=== PATIENT | female | born 1985 | race Caucasian/White ===

== ENCOUNTER 2018-08-30 16:29 | Emergency (ER) | payer SELFPAY ==
[2018-08-30 16:37] VITALS: BP 98/79
[2018-08-30] MEDS ORDERED: ACETAMINOPHEN 325 MG TABLET PO ONE (17:09)
--- NOTE | 2018-08-30 18:22 | RADIOLOGY REPORT (SQ) ---
EXAM DESCRIPTION: SHOULDER RIGHT 2 OR MORE VIEWS COMPLETED DATE/TIME: 08/30/2018 5:49 pm REASON FOR STUDY: right ribs shoulder pain after fall COMPARISON: None. NUMBER OF VIEWS: Three views. TECHNIQUE: Internal rotation, external rotation, and Y view images acquired of the right shoulder. LIMITATIONS: None. FINDINGS: MINERALIZATION: Normal. BONES: No acute fracture or dislocation. No worrisome bone lesions. JOINTS: No dislocation. VISUALIZED LUNGS AND RIBS: No pneumothorax. No rib fracture. SOFT TISSUES: No radiopaque foreign body. OTHER: No other significant finding. IMPRESSION: NEGATIVE STUDY OF THE RIGHT SHOULDER. NO RADIOGRAPHIC EVIDENCE OF ACUTE INJURY. TECHNICAL DOCUMENTATION: JOB ID: [id number] [employer]- All Rights Reserved Reading location - IP/workstation name: [email or web address]
--- NOTE | 2018-08-30 18:23 | RADIOLOGY REPORT (SQ) ---
EXAM DESCRIPTION: CERV SP 4 OR 5 VIEWS COMPLETED DATE/TIME: 08/30/2018 5:49 pm REASON FOR STUDY: fell landed on chair left chest shoulder and neck COMPARISON: None. NUMBER OF VIEWS: Five views. TECHNIQUE: AP, lateral, obliques and odontoid radiographic images acquired of the cervical spine. LIMITATIONS: None. FINDINGS: MINERALIZATION: Normal. ALIGNMENT: Anatomic. VERTEBRAE: Vertebral bodies of normal height. DISCS: No significant osteophytes or sclerosis. Disc height maintained. FORAMINA: No osteophytes or foraminal narrowing. LATERAL AND POSTERIOR ELEMENTS: Facets, lateral masses and spinous processes without significant find ings. HARDWARE: None in the spine. SOFT TISSUES: No masses or calcifications. Lung apices clear. OTHER: No other significant finding. IMPRESSION: NO SIGNIFICANT RADIOGRAPHIC FINDING IN THE CERVICAL SPINE. TECHNICAL DOCUMENTATION: JOB ID: [id number] [employer]- All Rights Reserved Reading location - IP/workstation name: [email or web address]
--- NOTE | 2018-08-30 18:23 | RADIOLOGY REPORT (SQ) ---
EXAM DESCRIPTION: RIBS RIGHT W/PA CHEST COMPLETED DATE/TIME: 08/30/2018 5:49 pm REASON FOR STUDY: right ribs shoulder pain after fall COMPARISON: None. TECHNIQUE: Frontal view of the chest and additional views of the right ribs acquired. NUMBER OF VIEWS: Three view. LIMITATIONS: None. FINDINGS: FRONTAL CXR: No pneumothorax. No pleural effusion. No atelectasis or infiltrates. RIBS: No displaced rib fractures. No lytic or blastic bony lesions. OTHER: No other significant finding. IMPRESSION: NO PNEUMOTHORAX. NO DISPLACED RIB FRACTURES. COMMENT: SITE OF TRAUMA/COMPLAINT MARKED/STAMP COMPLETED: YES. TECHNICAL DOCUMENTATION: JOB ID: [id number] [employer]- All Rights Reserved Reading location - IP/workstation name: [email or web address]
--- NOTE | 2018-08-30 19:00 | ER Document Report ---
ED Fall - General Chief Complaint: Fall Injury Stated Complaint: FALL/RIB PAIN Time Seen by Provider: 08/30/18 16:45 Mode of Arrival: Wheelchair Information source: Patient Notes: 33-year-old female presents to ED for complaint of falling landing on her chair earlier today. She states she has hemiplegic migraines and she had a migraine eat earlier causing her to fall and landed on the back of her chair. She states it caused her to have pain in her neck shoulder and ribs. She states she heard and felt a grinding noise in her neck and shoulder. Patient is alert and oriented respirations regular and unlabored speaking in full sentences walks with a even steady gait. TRAVEL OUTSIDE OF THE [place] IN LAST 30 DAYS: No - HPI Occurred: This afternoon Where: Public place Context: Fell from standing - At the back of a chair Associated symptoms: None Location of injury/pain: Chest - Right ribs, Neck, Shoulder - Right shoulder Quality of pain: Achy, Sharp Severity: Moderate Pain Level: 3 - Related data Allergies/Adverse Reactions: diphenhydramine [From Benadryl] Allergy (Verified 08/30/18 16:33) doxycycline Allergy (Verified 08/30/18 16:33) morphine Allergy (Verified 08/30/18 16:33) Past Medical History - General Information source: Patient - Social History Smoking Status: Never Smoker Cigarette use (# per day): No Chew tobacco use (# tins/day): No Smoking Education Provided: No Frequency of alcohol use: None Drug Abuse: Marijuana Lives with: Spouse/Significant other - "Life partner " Family History: Reviewed & Not Pertinent Patient has suicidal ideation: No Patient has homicidal ideation: No - Past Medical History Cardiac Medical History: Reports: None Pulmonary Medical History: Reports: None EENT Medical History: Reports: None Neurological Medical History: Reports: Hx Migraine - hemiplegia Endocrine Medical History: Reports: None Renal/ Medical History: Reports: None Malignancy Medical History: Reports: None GI Medical History: Reports: None Musculoskeletal Medical History: Reports Hx Musculoskeletal Trauma Skin Medical History: Reports None Psychiatric Medical History: Reports: None Traumatic Medical History: Reports: Hx Fractures Infectious Medical History: Reports: None Past Surgical History: Reports: Hx Breast Surgery - tumor removed, Hx Cholecystectomy, Hx Orthopedic Surgery - R femur - Immunizations Immunizations up to date: Yes Hx Diphtheria, Pertussis, Tetanus Vaccination: Yes Review of Systems - Review of Systems Notes: REVIEW OF SYSTEMS: CONSTITUTIONAL : Denies fever, chills, or sweats. Denies recent illness. EENT: Denies eye, ear, throat, or mouth pain or symptoms. Denies nasal or sinus congestion or discharge. Denies throat, tongue, or mouth swelling or difficulty swallowing. CARDIOVASCULAR: Denies chest pain. Denies palpitations or racing or irregular heart beat. Denies ankle edema. RESPIRATORY: Pain and tenderness to the right ribs GASTROINTESTINAL: Denies abdominal pain or distention. Denies nausea, vomiting , or diarrhea. Denies blood in vomitus, stools, or per rectum. Denies black, tarry stools. Denies constipation. GENITOURINARY: Denies difficulty urinating, painful urination, burning, frequency, blood in urine, or discharge. FEMALE GENITOURINARY: Denies vaginal bleeding, heavy or abnormal periods, irregular periods. Denies vaginal discharge or odor. MUSCULOSKELETAL: Pain to the right ribs, neck, and right shoulder SKIN: Denies rash, lesions or sores. HEMATOLOGIC : Denies easy bruising or bleeding. LYMPHATIC: Denies swollen, enlarged glands. NEUROLOGICAL: Denies confusion or altered mental status. Denies passing out or loss of consciousness. Denies dizziness or lightheadedness. Denies headache. Denies weakness or paralysis or loss of use of either side. Denies problems with gait or speech. Denies sensory loss, numbness, or tingling. Denies seizures. PHYSICAL EXAMINATION: GENERAL: Well-appearing, well-nourished and in no acute distress. HEAD: Atraumatic, normocephalic. EYES: Pupils equal round and reactive to light, extraocular movements intact, conjunctiva are normal. ENT: Nares patent, oropharynx clear without exudates. Moist mucous membranes. NECK: Normal range of motion, supple without lymphadenopathy LUNGS: Breath sounds clear to auscultation bilaterally and equal. No wheezes rales or rhonchi. HEART: Regular rate and rhythm without murmurs ABDOMEN: Soft, nontender, nondistended abdomen. No guarding, no rebound. No masses appreciated. Female : deferred Musculoskeletal: Pain in right ribs neck and shoulder tenderness to all 3 areas no bruising swelling noted NEUROLOGICAL: Cranial nerves grossly intact. Normal speech, normal gait. Normal sensory, motor exams PSYCH: Normal mood, normal affect. SKIN: Warm, Dry, normal turgor, no rashes or lesions noted. PSYCHIATRIC: Denies anxiety or stress. Denies depression, suicidal ideation, or homicidal ideation. ALL OTHER SYSTEMS REVIEWED AND NEGATIVE. Dictation was performed using [employer] voice recognition software Physical Exam - Vital signs Vitals: Temp Pulse Resp BP Pulse Ox 98.0 F 86 16 98/79 L 96 08/30/18 16:35 08/30/18 16:35 08/30/18 16:35 08/30/18 16:35 08/30/18 16:35 Course - Re-evaluation Re-evalutation: 08/30/18 21:09 X-rays discussed with patient a CD of the x-rays was given to the patient to follow-up with her primary doctor. Patient was treated with Tylenol in the ED as she had already taken 1000 mg of ibuprofen before coming to the emergency room. Patient was given a list of local primary doctors to follow-up with. She states she has a neurologist she is to follow-up with. - Vital Signs Vital signs: Temp Pulse Resp BP Pulse Ox 98.0 F 86 16 98/79 L 96 08/30/18 16:35 08/30/18 16:35 08/30/18 16:35 08/30/18 16:35 08/30/18 16:35 - Diagnostic Test Radiology reviewed: Image reviewed, Reports reviewed Discharge - Discharge Clinical Impression: Fall Qualifiers: Encounter type: initial encounter Qualified Code(s): W19.XXXA - Unspecified fall, initial encounter Contusion of rib on right side Qualifiers: Encounter type: initial encounter Qualified Code(s): S20.211A - Contusion of right front wall of thorax, initial encounter Contusion of right shoulder Qualifiers: Encounter type: initial encounter Qualified Code(s): S40.011A - Contusion of right shoulder, initial encounter Cervical strain Qualifiers: Encounter type: initial encounter Qualified Code(s): S16.1XXA - Strain of muscle, fascia and tendon at neck level, initial encounter Condition: Stable Disposition: HOME, SELF-CARE Instructions: Family Physicians / Practices Additional Instructions: Rib Contusion You have been diagnosed as having bruised ribs. It will usually take a few weeks for these injured ribs to heal. You should cough or take a deep breath at least every hour or two to prevent lung complications. You should not engage in any strenuous physical activity until released by your physician. The usual rule is "if it hurts, don' t do it." Return if you develop any of the following: (1) Fever or chills. (2) Persistent cough, coughing up blood, or shortness of breath. (3) Increasing pain. (4) Weakness, lightheadedness, or fainting. Shoulder Injury You have injured your shoulder. This usually results from stretching or tearing of the tendons during trauma. Time and protection are required in order to heal properly. Many injuries are quite disabling, and should be taken seriously. Initial treatment includes cold packs and a sling to rest the shoulder. The physician has assessed the seriousness of your injury, and has outlined a treatment plan. Understand that this treatment may change, depending on how you progress. If a re-examination was recommended, it is important that you follow up as instructed. Some shoulder injuries (such as partial tear of the rotator cuff) are only suspected after you've failed to improve. Call us if there's severe pain, numbness, or loss of function. NECK INJURY (CERVICAL STRAIN): You have a neck strain. This is an injury to the muscles and ligaments in the neck. There is no evidence of a fracture of the neck bones. Also, no injury to the spinal cord or nerve roots was detected. Usually, stiffness and pain INCREASE for the first 24-48 hours after the injury. The pain will gradually resolve and the neck will become more mobile. Most patients are back at work or school within a few days. Typically, complete healing takes about two or three weeks. The usual initial treatment is rest and cold packs. A neck collar may be placed to keep the muscles of the neck at rest. Antiinflammatory and muscle relaxing medication are often used to reduce the spasm and irritation. You should call the doctor, or go to the hospital, if you develop numbness or weakness in any extremity, problems with your bladder or bowel, or pain radiating down the arms. USE OF TYLENOL (ACETAMINOPHEN): Acetaminophen may be taken for pain relief or fever control. It's much safer than aspirin, offering a wider range of "safe" dosages. It is safe during . Some brand names are Tylenol, Panadol, Datril, Anacin 3, Tempra, and Liquiprin. Acetaminophen can be repeated every four hours. The following are maximum recommended dosages: WEIGHT Dose Drops Elixir Chewable( 80mg) (LBS.) drprs=droppers tsp=teaspoon 6 40 mg 0.4 ml (1/2) 6-11 80 mg 0.8 ml (full) tsp 1 tab 12-16 120 mg 1 1/2 drprs 3/4 tsp 1 1/2 tabs 17-23 160 mg 2 drprs 1 tsp 2 tabs 24-30 240 mg 3 drprs 1 1/2 tsp 3 tabs 30-35 320 mg 2 tsp 4 tabs 36-41 360 mg 2 1/4 tsp 4 1/2 tabs 42-47 400 mg 2 1/2 tsp 5 tabs 48-53 480 mg 3 tsp 6 tabs 54-59 520 mg 3 1/4 tsp 6 1/2 tabs 60-64 560 mg 3 1/2 tsp 7 tabs 65-70 600 mg 3 3/4 tsp 7 1/2 tabs 71-76 640 mg 4 tsp 8 tabs 77-82 720 mg 4 1/2 tsp 9 tabs 83-88 800 mg 5 tsp 10 tabs >89 pounds or adults 650 mg to 900 mg Acetaminophen can be repeated every four hours. Maximum dose not to exceed 4000 mg a day. These maximum recommended dosages are slightly higher than the dosages written on the product container, but these dosages are very safe and below the toxic dosage for acetaminophen. ICE PACKS: Apply ice packs frequently against the painful area. Many different schedules are recommended, such as "20 minutes on, 20 minutes off" or "one hour ice, two hours rest." If you need to work, you may need to go longer between ice treatments. You should plan to have the area ice packed AT LEAST one fourth of the time. The ice should be applied over the wrap, tape, or splint, or over a layer of cloth -- not directly against the skin. Some ice bags have a built-in cloth and can be put directly on the skin. WARM PACKS: After approximately two days, apply gentle heat (such as a heating pad or hot water bottle) for about 20 to 30 minutes about every two hours -- at least four times daily. Warmth and elevation will help you make a more rapid recovery , and will ease the pain considerably. Do not use HOT heat, and never apply heat for longer than 30 minutes. The continuous heat can invisibly damage skin and muscles -- even when no burn is seen on the surface. Damaged muscles can make you MORE sore. FOLLOW-UP CARE: If you have been referred to a physician for follow-up care, call the physician s office for an appointment as you were instructed or within the next two days. If you experience worsening or a significant change in your symptoms, notify the physician immediately or return to the Emergency Department at any time for re-evaluation. Forms: Smoking Cessation Education Referrals: [facility] [Provider Group] - Follow up as needed [facility] [Provider Group] - Follow up as needed
== END 2018-08-30 19:44 | disposition home or self-care (01) ==
LOC: ER 16:29
DX: S16.1XXA Strain of muscle, fascia and tendon at neck level, initial encounter (principal); S20.211A Contusion of right front wall of thorax, initial encounter; S40.011A Contusion of right shoulder, initial encounter; R07.81 Pleurodynia; M54.2 Cervicalgia; M25.511 Pain in right shoulder; W19.XXXA Unspecified fall, initial encounter; W22.03XA Walked into furniture, initial encounter; Z88.8 Allergy status to other drugs, medicaments and biological substances; Z88.1 Allergy status to other antibiotic agents; Z88.5 Allergy status to narcotic agent
CPT/HCPCS: 72050; 99283

== ENCOUNTER 2019-01-14 15:03 | Emergency (ER) | payer SELFPAY ==
[2019-01-14] MEDS ORDERED: LORAZEPAM INJ 2 MG/1 ML VIAL IV ONE (16:18)
--- NOTE | 2019-01-14 16:18 | ER Document Report ---
Addendum entered and electronically signed by PAUL RODRIGUEZ PA-C 01/14/19 22:41: Course - Re-evaluation Re-evalutation: 01/14/19 22:40 I look patient up on the [employer] aware line and she does not show any signs of doctor shopping or narcotic seeking behavior. - Vital Signs Vital signs: Temp Pulse Resp BP Pulse Ox 98.1 F 78 20 131/79 H 98 01/14/19 21:13 01/14/19 21:13 01/14/19 21:13 01/14/19 21:13 01/14/19 21:13 - Laboratory Result Diagrams: 01/14/19 16:45 01/14/19 16:45 Laboratory results interpreted by me: 01/14/19 01/14/19 15:55 16:45 Chloride 108 H Urine Ascorbic Acid 40 H Original Note: ED General Pain - General Chief Complaint: Back Pain Stated Complaint: BACK PAIN Time Seen by Provider: 01/14/19 16:12 Mode of Arrival: Ambulatory Information source: Patient, Relative Notes: Patient is a 33-year-old female comes to the emergency room with her complaining of having a history of multiple medical problems. She has states she has a history of DJD, she has a history of hemiplegic migraines, she has a history of hypertension, polycystic ovarian syndrome, history of sciatica with radiation down the legs, history of right hip pain and dislocation, history of chronic back problems,. Patient's last period was in March states is secondary to polycystic ovarian syndrome. Patient denies smoking alcohol or narcotics. She does admit to smoking marijuana for her pain relief. Patient states that the back pain that she is experienced is triggered her hemiplegic migraines and she is afraid she is going to have an event. Patient then mentions that in the past week she has had uncontrolled loss of her urine and 2 times uncontrolled loss of her stool. TRAVEL OUTSIDE OF THE [place] IN LAST 30 DAYS: No - HPI Onset: Last week Onset/Duration: Gradual, Persistent, Worse Severity: Moderate Pain Level: 3 Context: Chronic problem - ED nurse practitioner to me Typical of prior episodes of painful crisis: Yes Associated symptoms: Muscle aches Exacerbated by: Sitting, Standing, Movement, Walking, Coughing, Deep breathing Relieved by: Denies Similar symptoms previously: Yes Recently seen / treated by doctor: Yes - Related Data Allergies/Adverse Reactions: diphenhydramine [From Benadryl] Allergy (Verified 01/14/19 15:10) doxycycline Allergy (Verified 01/14/19 15:10) morphine Allergy (Verified 01/14/19 15:10) екатерина Allergy (Uncoded 01/14/19 17:39) raspberries Allergy (Uncoded 01/14/19 17:39) Past Medical History - General Information source: Patient - Social History Smoking Status: Never Smoker Cigarette use (# per day): No Chew tobacco use (# tins/day): No Smoking Education Provided: No Drug Abuse: None Lives with: Family Family History: Reviewed & Not Pertinent Neurological Medical History: Reports: Hx Migraine - hemiplegia Renal/ Medical History: Denies: Hx Peritoneal Dialysis Musculoskeletal Medical History: Reports Hx Musculoskeletal Trauma Traumatic Medical History: Reports: Hx Fractures Past Surgical History: Reports: Hx Breast Surgery - tumor removed, Hx Cholecystectomy, Hx Orthopedic Surgery - R femur - Immunizations Immunizations up to date: Yes Hx Diphtheria, Pertussis, Tetanus Vaccination: Yes Review of Systems - Review of Systems Constitutional: No symptoms reported EENT: No symptoms reported Cardiovascular: No symptoms reported Respiratory: No symptoms reported Gastrointestinal: No symptoms reported Genitourinary: Dysuria, Hematuria, Other - Loss of urine Female Genitourinary: No symptoms reported Musculoskeletal: No symptoms reported, Joint pain, Muscle pain, Muscle stiffness Skin: No symptoms reported Hematologic/Lymphatic: No symptoms reported Neurological/Psychological: Sensory change, Weakness, Gait changes, Headaches -: Yes All other systems reviewed and negative Physical Exam - Vital signs Vitals: Temp Pulse Resp BP Pulse Ox 98.5 F 74 15 131/90 H 98 01/14/19 15:15 01/14/19 15:15 01/14/19 15:15 01/14/19 15:15 01/14/19 15:15 Interpretation: Hypertensive - Notes Notes: PHYSICAL EXAMINATION: GENERAL: Patient is a well-nourished well-developed morbidly obese 33-year-old female who is in no apparent distress on physical exam however she is very expressive, histrionic and stands out as the liter in the family. Patient is stated very histrionic giving details about her hemiplegic migraines and how bad they can be and how she loses herself in them but she does not actually pass out. She is daily accounts of how this happens to her and she remembers everything going on around her. Patient does smell of urine on physical examination. HEAD: Atraumatic, normocephalic. EYES: Pupils equal round and reactive to light, extraocular movements intact, conjunctiva are normal. ENT: Nares patent, oropharynx clear without exudates. Moist mucous membranes. NECK: Normal range of motion, supple without lymphadenopathy LUNGS: Breath sounds clear to auscultation bilaterally and equal. No wheezes rales or rhonchi. HEART: Regular rate and rhythm without murmurs ABDOMEN: Soft, nontender, nondistended abdomen. No guarding, no rebound. No masses appreciated. Female : deferred Musculoskeletal: Examination patient's low back shows moderate amount of tenderness to palpation along the lumbar spine area around L3-L4. Patient very sensitive to touch at this point. She has some moderate amount of tenderness running down to the back of sciatic notch on the right buttocks. And she has some tenderness and sensitivity going down to the back of the leg. Patient has good DTRs in the lower extremities bilaterally. She has good strength against resistance with knee lifts and with flexion and extensions of the legs outward and inward. As well as good strength with squeezing of the knees. Patient has good sphincter tone. NEUROLOGICAL: Normal speech, normal gait. Normal sensory, motor exams PSYCH: Normal mood, normal affect. SKIN: Warm, Dry, normal turgor, no rashes or lesions noted. Course - Re-evaluation Re-evalutation: 01/14/19 22:33 Patient's MRI was negative for any cauda equina syndrome. She was also shows multiple areas of bulging disc as well as an area of an impingement at L5 for L5 I believe. We are going to treat this with steroid taper and some muscle relaxers. Patient will follow up with her primary care outpatient since there is no acute findings on any of the MRIs. - Vital Signs Vital signs: Temp Pulse Resp BP Pulse Ox 98.1 F 78 20 131/79 H 98 01/14/19 21:13 01/14/19 21:13 01/14/19 21:13 01/14/19 21:13 01/14/19 21:13 - Laboratory Result Diagrams: 01/14/19 16:45 01/14/19 16:45 Laboratory results interpreted by me: 01/14/19 01/14/19 15:55 16:45 Chloride 108 H Urine Ascorbic Acid 40 H Discharge - Discharge Clinical Impression: Sciatica of right side associated with disorder of lumbar spine Condition: Good Disposition: HOME, SELF-CARE Instructions: Ice Packs ([facility]), Low Back Pain ([facility]), Muscle Strain ([facility]), Oral Narcotic Medication ([facility]), Sciatica ([facility]) Additional Instructions: Home and rest. Medication as prescribed. As we discussed he will need to follow-up with orthopedic doctor or a neurosurgeon for further intervention. Highly recommend he contact your primary care for this. Should you have any concerns or problems she can return to ER for recheck. Given the name of the orthopedic surgeon remote ruby on rails developer since we do not have a neurologist remote ruby on rails developer here. And he may contact his office if he can accommodate you. Prescriptions: Cyclobenzaprine HCl [Flexeril 10 mg Tablet] 10 mg PO TID #21 tablet Hydrocodone/Acetaminophen [Mesa 5-325 mg Tablet] 1 tab PO Q6 PRN #8 tablet PRN Reason: Prednisone 10 mg PO ASDIR 6 Days #1 tab.ds.pk Forms: Elevated Blood Pressure Referrals: CONSTANTINE ARMANDO MD [ACTIVE STAFF] - Follow up as needed
[2019-01-14 16:41] LABS: APPEARANCE,URINE CLEAR; BILIRUBIN,URINE NEGATIVE (NEGATIVE); COLOR,URINE YELLOW; GLUCOSE, URINE NEGATIVE (NEGATIVE); KETONES,URINE NEGATIVE (NEGATIVE); LEUKOCYTE ESTERASE,URINE NEGATIVE (NEGATIVE); NITRITE,URINE NEGATIVE (NEGATIVE); PROTEIN,URINE NEGATIVE (NEGATIVE); URINE SPECIFIC GRAVITY 1.019; UROBILINOGEN,URINE NEGATIVE mg/dL (<2.0)
[2019-01-14 17:01] LABS: URINE AMPHETAMINES SCREEN NEGATIVE; URINE BARBITURATES SCREEN NEGATIVE; URINE BENZODIAZEPINES SCREEN NEGATIVE; URINE COCAINE SCREEN NEGATIVE; URINE MARIJUANA (THC) SCREEN UNCONFIRMED POSITIVE; URINE METHADONE SCREEN NEGATIVE; URINE PHENCYCLIDINE SCREEN NEGATIVE
[2019-01-14 17:02] LABS: ABSOLUTE EOSINOPHILS # (AUTO) 0.1 10^3/uL (0.0-0.6); ABSOLUTE LYMPHOCYTES (AUTO) 2.6 10^3/uL (0.5-4.7); ABSOLUTE MONOCYTES (AUTO) 0.6 10^3/uL (0.1-1.4); ABSOLUTE NEUT (AUTO) 3.9 10^3/uL (1.7-8.2); BASOPHILS % (AUTO) 0.5 % (0-2); EOSINOPHILS % (AUTO) 0.9 % (0-6); HEMATOCRIT 37.8 % (36.0-47.0); HEMOGLOBIN 13.1 g/dL (12.0-15.5); LYMPHOCYTES % (AUTO) 35.8 % (13-45); MEAN CORPUSCULAR HEMOGLOBIN 30.7 pg (27.0-33.4); MEAN CORPUSCULAR HGB CONC 34.6 g/dL (32.0-36.0); MEAN CORPUSCULAR VOLUME 89 fl (80-97); MONOCYTES % (AUTO) 8.6 % (3-13); PLATELET COUNT 217 10^3/uL (150-450); RED BLOOD COUNT 4.26 10^6/uL (3.72-5.28); RED CELL DISTRIBUTION WIDTH 13.6 % (11.5-14.0); SEGMENTED NEUTROPHILS % (AUTO) 54.2 % (42-78); TOTAL CELLS COUNTED % (AUTO) 100 %; WHITE BLOOD COUNT 7.2 10^3/uL (4.0-10.5)
[2019-01-14 17:19] LABS: ALANINE AMINOTRANSFERASE 28 U/L (9-52); ALBUMIN 3.9 g/dL (3.5-5.0); ALKALINE PHOSPHATASE 77 U/L (38-126); ANION GAP 7 (5-19); ASPARTATE AMINO TRANSFERASE 25 U/L (14-36); BILIRUBIN,DIRECT 0.2 mg/dL (0.0-0.4); BILIRUBIN,TOTAL 0.5 mg/dL (0.2-1.3); BLOOD UREA NITROGEN 14 mg/dL (7-20); CALCIUM 9.7 mg/dL (8.4-10.2); CARBON DIOXIDE 24 mmol/L (22-30); CHLORIDE 108 mmol/L (98-107); GLUCOSE 83 mg/dL (75-110); POTASSIUM 4.1 mmol/L (3.6-5.0); SODIUM 138.7 mmol/L (137-145); TOTAL PROTEIN 6.8 g/dL (6.3-8.2)
--- NOTE | 2019-01-14 20:05 | RADIOLOGY REPORT (SQ) ---
EXAM DESCRIPTION: MR LUMBAR SPINE WITHOUT IV CONTRAST COMPLETED DATE/TME: 01/14/2019 16:13 CLINICAL HISTORY: 33 years, Female, Involuntary loss of urine with back pain/question COMPARISON: None. TECHNIQUE: Multiplanar, multisequence MR images of the lumbar spine were obtained without use of intravenous contrast. Images stored on PACS. LIMITATIONS: None. FINDINGS: The conus medullaris is normal in signal and morphology, terminating at the T12-L1 level. Anterior and posterior ligamentous structures are intact. Multilevel disc desiccation is noted along with Modic type II degenerative endplate changes at L4-L5 and L5-S1. There are no epidural fluid collections. No suspicious bone marrow edema signal is identified. Mild multilevel degenerative changes are noted, as follows: T10-L3 appear normal. At L3-L4, there is minimal disc bulge without significant foraminal or central canal stenosis. At L4-L5, there is mild disc bulge with superimposed central to left central disc protrusion as well as mild bilateral facet hypertrophy. This appears to mildly efface the left lateral recess and possibly impinge upon the descending left L5 nerve root. No resultant foraminal or central canal stenosis is noted. At L5-S1, there is mild disc bulge with superimposed right central to subarticular disc protrusion which contacts the descending right S1 nerve root in the lateral recess. No foraminal or central canal stenosis is noted. Lumbar vertebral body heights and alignments appear maintained. Limited evaluation of the abdominal structures reveals no suspicious finding. IMPRESSION: Mild multilevel lumbar spondylosis, as above. This appears most pronounced at L4-L5 where there is mild disc bulge with superimposed central to left central disc protrusion as well as mild bilateral facet hypertrophy, mildly effacing the left lateral recess and possibly impinging upon the descending left L5 nerve root. No evidence of significant central canal stenosis. copyright 2010 [employer]- All Rights Reserved
--- NOTE | 2019-01-14 20:39 | RADIOLOGY REPORT (SQ) ---
EXAM DESCRIPTION: MR THORACIC SPINE WITHOUT IV CONTRAST COMPLETED DATE/TME: 01/14/2019 16:16 CLINICAL HISTORY: 33 years, Female, back pain COMPARISON: CT chest dated 09/14/2017. TECHNIQUE: Multiplanar, multisequence MR images of the thoracic spine were obtained without the use of intravenous contrast. Images stored on PACS. LIMITATIONS: None. FINDINGS: Thoracic cord signal appears within normal limits. There are no epidural fluid collections. Anterior and posterior ligamentous structures appear intact. Mild disc desiccation is evident; however, no significant intervertebral disc space narrowing or disc bulges are identified throughout the thoracic spine. Specifically, there is no evidence of foraminal or central canal stenosis throughout the thoracic spine. There are no foci of abnormal bone marrow edema signal. A bright T2 signal lesion is noted just anterior to the T5/T6 level, either indicating a small subcarinal lymph noted or enteric duplication cyst. This measures 0.9 x 0.6 cm in size, and was likely present on the previous CT chest dated 09/14/2017.. Otherwise, paravertebral soft tissues show no suspicious abnormality. IMPRESSION: No acute abnormality or significant air change within the thoracic spine. Specifically, no evidence of thoracic canal stenosis. copyright 2010 [employer]- All Rights Reserved
[2019-01-14] MEDS ORDERED: DEXAMETHASONE SOD PHOS INJ 10 MG/1 ML VIAL IV ONE (21:45)
[2019-01-14] MEDS ORDERED: KETOROLAC TROMETHAMINE INJ/PF 30 MG/1 ML SDV IV ONE (21:45)
[2019-01-14 23:29] VITALS: BP 124/77
== END 2019-01-14 23:28 | disposition home or self-care (01) ==
LOC: ER 15:03
DX: M51.17 Intervertebral disc disorders with radiculopathy, lumbosacral region (principal); R51 Headache; R26.9 Unspecified abnormalities of gait and mobility; Z90.49 Acquired absence of other specified parts of digestive tract; Z88.6 Allergy status to analgesic agent
CPT/HCPCS: 99283; 96374; 96375; 36415; 85025; 81025; 80053; 81001; 80307; 72146; 72148; J1885; J2060; J1100

== ENCOUNTER 2019-01-24 15:37 | Emergency (ER) | payer SELFPAY ==
--- NOTE | 2019-01-24 16:21 | ER Document Report ---
ED Medical Screen (RME) - General Chief Complaint: Seizure Stated Complaint: POSSIBLE SEZIURE Time Seen by Provider: 01/24/19 16:00 Mode of Arrival: Ambulatory Information source: Patient TRAVEL OUTSIDE OF THE [place] IN LAST 30 DAYS: No - HPI Patient complains to provider of: increased back pain Notes: 01/24/19 16:14 Patient here with complaints of increasing back pain with increased weakness to the lower extremities as well as bowel bladder dysfunction. This been going on for about 2 weeks now. Patient was seen here 10 days ago and had an MRI of the thoracic and lumbar spine which showed bulging disc with narrowing but no cauda equina, significant central spinal cord compression. She states that today her legs seem to not be working at all. She is also complaining of her head feeling "foggy. She also has a history of hemiplegic migraines. Exam Patient is nontoxic-appearing, no distress. She does have some generalized weakness to her lower extremities bilaterally. Reflexes are normal. Lungs are clear. Plan Screening labs have been ordered. Since the patient just had an MRI 10 days ago that showed no sign of cauda equina, I have not ordered this test emergently at this time. I would like for the patient to be further evaluated 1 of the providers in the back to determine what if any imaging would be indicated at this time. An initial examination was made on the patient as part of the triage process, and it was determined a more comprehensive evaluation was necessary. Initial labs were ordered and patient was transferred to another provider in the ED who assumed care and finished evaluation and plan. - Related Data Allergies/Adverse Reactions: diphenhydramine [From Benadryl] Allergy (Verified 01/24/19 15:39) doxycycline Allergy (Verified 01/24/19 15:39) morphine Allergy (Verified 01/24/19 15:39) екатерина Allergy (Uncoded 01/24/19 15:39) raspberries Allergy (Uncoded 01/24/19 15:39) Past Medical History - Social History Chew tobacco use (# tins/day): No Frequency of alcohol use: None Drug Abuse: Marijuana Neurological Medical History: Reports: Hx Migraine - hemiplegia Renal/ Medical History: Denies: Hx Peritoneal Dialysis Musculoskeltal Medical History: Reports Hx Musculoskeletal Trauma Traumatic Medical History: Reports: Hx Fractures Past Surgical History: Reports: Hx Breast Surgery - tumor removed, Hx Cholecystectomy, Hx Orthopedic Surgery - R femur - Immunizations Immunizations up to date: Yes Hx Diphtheria, Pertussis, Tetanus Vaccination: Yes Physical Exam - Vital signs Vitals: Temp Pulse Resp BP Pulse Ox 98.1 F 86 14 138/97 H 98 01/24/19 15:46 01/24/19 15:46 01/24/19 15:46 01/24/19 15:46 01/24/19 15:46 Course - Vital Signs Vital signs: Temp Pulse Resp BP Pulse Ox 98.1 F 86 14 138/97 H 98 01/24/19 15:46 01/24/19 15:46 01/24/19 15:46 01/24/19 15:46 01/24/19 15:46
[2019-01-24 16:53] LABS: ABSOLUTE BASOPHILS # (AUTO) 0.1 10^3/uL (0.0-0.2); ABSOLUTE EOSINOPHILS # (AUTO) 0.1 10^3/uL (0.0-0.6); ABSOLUTE LYMPHOCYTES (AUTO) 4.7 10^3/uL (0.5-4.7); ABSOLUTE MONOCYTES (AUTO) 1.1 10^3/uL (0.1-1.4); ABSOLUTE NEUT (AUTO) 7.9 10^3/uL (1.7-8.2); BASOPHILS % (AUTO) 0.9 % (0-2); EOSINOPHILS % (AUTO) 0.7 % (0-6); HEMATOCRIT 43.2 % (36.0-47.0); HEMOGLOBIN 14.5 g/dL (12.0-15.5); LYMPHOCYTES % (AUTO) 33.8 % (13-45); MEAN CORPUSCULAR HEMOGLOBIN 30.1 pg (27.0-33.4); MEAN CORPUSCULAR HGB CONC 33.7 g/dL (32.0-36.0); MEAN CORPUSCULAR VOLUME 89 fl (80-97); MONOCYTES % (AUTO) 7.9 % (3-13); PLATELET COUNT 274 10^3/uL (150-450); RED BLOOD COUNT 4.83 10^6/uL (3.72-5.28); SEGMENTED NEUTROPHILS % (AUTO) 56.7 % (42-78); TOTAL CELLS COUNTED % (AUTO) 100 %; WHITE BLOOD COUNT 13.9 10^3/uL (4.0-10.5)
[2019-01-24 16:57] LABS: APPEARANCE,URINE SLIGHTLY-CLOUDY; BILIRUBIN,URINE NEGATIVE (NEGATIVE); COLOR,URINE YELLOW; GLUCOSE, URINE NEGATIVE (NEGATIVE); KETONES,URINE NEGATIVE (NEGATIVE); LEUKOCYTE ESTERASE,URINE NEGATIVE (NEGATIVE); NITRITE,URINE NEGATIVE (NEGATIVE); PROTEIN,URINE NEGATIVE (NEGATIVE); URINE SPECIFIC GRAVITY 1.016; UROBILINOGEN,URINE NEGATIVE mg/dL (<2.0)
[2019-01-24 17:16] LABS: ALANINE AMINOTRANSFERASE 21 U/L (9-52); ALBUMIN 4.1 g/dL (3.5-5.0); ALKALINE PHOSPHATASE 85 U/L (38-126); ANION GAP 8 (5-19); ASPARTATE AMINO TRANSFERASE 19 U/L (14-36); BILIRUBIN,DIRECT 0.2 mg/dL (0.0-0.4); BILIRUBIN,TOTAL 0.5 mg/dL (0.2-1.3); BLOOD UREA NITROGEN 18 mg/dL (7-20); CARBON DIOXIDE 28 mmol/L (22-30); CHLORIDE 101 mmol/L (98-107); GLUCOSE 87 mg/dL (75-110); POTASSIUM 4.4 mmol/L (3.6-5.0); SODIUM 136.5 mmol/L (137-145); TOTAL PROTEIN 7.3 g/dL (6.3-8.2)
--- NOTE | 2019-01-24 21:18 | ER Document Report ---
ED General - General Mode of Arrival: Ambulatory TRAVEL OUTSIDE OF THE [place]. IN LAST 30 DAYS: No - HPI Onset: Last week Onset/Duration: Gradual, Constant Quality of pain: Throbbing Severity: Moderate Pain Level: 4 Associated symptoms: Other - Leg numbness <EDMAR CASSIDY - Last Filed: 01/24/19 22:11> <TATA JAMES - Last Filed: 01/24/19 22:47> - General Chief Complaint: Seizure Stated Complaint: POSSIBLE SEZIURE Time Seen by Provider: 01/24/19 16:00 Notes: 33-year-old female patient emergency department chief complaint of numbness to her legs and low back pain. Patient states that she was seen here 10 days ago and had an MRI of her thoracic and lumbar spine. States that she was told if he gets worse to come back. States that she cannot feel her legs, having pain with ambulation and then she lost her bowels today. Still able to urinate. Denies any fever, chills, sweats. Denies prior history of IV drug abuse. No prior history of epidural abscess. 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 (EDMAR CASSIDY) - Related Data Allergies/Adverse Reactions: diphenhydramine [From Benadryl] Allergy (Verified 01/24/19 15:39) doxycycline Allergy (Verified 01/24/19 15:39) morphine Allergy (Verified 01/24/19 15:39) екатерина Allergy (Uncoded 01/24/19 15:39) raspberries Allergy (Uncoded 01/24/19 15:39) Past Medical History - General Information source: Patient - Social History Smoking Status: Never Smoker Chew tobacco use (# tins/day): No Frequency of alcohol use: None Drug Abuse: Marijuana Family History: Reviewed & Not Pertinent Patient has suicidal ideation: No Patient has homicidal ideation: No Neurological Medical History: Reports: Hx Migraine - hemiplegia Renal/ Medical History: Denies: Hx Peritoneal Dialysis Musculoskeletal Medical History: Reports Hx Musculoskeletal Trauma Traumatic Medical History: Reports: Hx Fractures Past Surgical History: Reports: Hx Breast Surgery - tumor removed, Hx Cholecystectomy, Hx Orthopedic Surgery - R femur - Immunizations Immunizations up to date: Yes Hx Diphtheria, Pertussis, Tetanus Vaccination: Yes <EDMAR CASSIDY - Last Filed: 01/24/19 22:11> Review of Systems <WANDA CASSIDYJESENIA Whalen - Last Filed: 01/24/19 22:11> - Review of Systems Notes: Constitutional: denies: Chills, Diaphoresis, Fever, Malaise, Weakness EENT: denies: Eye discharge, Blurred vision, Tearing, Double vision, Nose congestion, Nose discharge, Throat swelling, Mouth pain Cardiovascular: denies: Palpitations, Heart racing, Orthopnea, Dyspnea, Chest pain Respiratory: denies: Cough, Hurts to breathe, Wheezing, Shortness of breath Gastrointestinal: denies: Abdominal pain, Diarrhea, Nausea, Vomiting, Black stools, bright red blood in stool Genitourinary: denies: Burning, Dysuria, Discharge, Frequency, Flank pain, Hematuria Musculoskeletal: denies: Joint pain, Joint swelling, Muscle pain, Muscle stiffness,+ back pain Hematologic/Lymphatic: denies: Anemia, Easy bleeding, Easy bruising, Blood clots Neurological/Psychological: denies: Confusion, Dementia, Depression, Loss of consciousness. Numbness to the bilateral lower extremities, loss of bowel function Skin: No lesions, no masses, no skin breakdown, no abscesses (EDMAR CASSIDY) Physical Exam - Vital signs Interpretation: Normal - General General appearance: Appears well, Alert - HEENT Head: Normocephalic, Atraumatic Eyes: Normal Pupils: PERRL - Respiratory Respiratory status: No respiratory distress Chest status: Nontender Breath sounds: Normal Chest palpation: Normal - Cardiovascular Rhythm: Regular Heart sounds: Normal auscultation Murmur: No - Abdominal Inspection: Normal Distension: No distension Bowel sounds: Normal Tenderness: Nontender Organomegaly: No organomegaly - Back Back: Normal, Nontender, Tender - Lumbar spine paraspinal muscles bilaterally. - Extremities General upper extremity: Normal inspection, Nontender, Normal color, Normal ROM, Normal temperature General lower extremity: Normal inspection, Nontender, Normal color, Normal ROM, Normal temperature, Normal weight bearing. No: Reddy's sign - Neurological Neuro grossly intact: Yes Cognition: Normal Orientation: AAOx4 [place] Coma Scale Eye Opening: Spontaneous [place] Coma Scale Verbal: Oriented [place] Coma Scale Motor: Obeys Commands [place] Coma Scale Total: 15 Speech: Normal Cranial nerves: Normal Motor strength normal: LUE, RUE, LLE, RLE Additional motor exam normals: Equal business services director. No: Involuntary movements, Weakness, Hemiplegia Babinski reflex: Normal (flexor plantar) Sensory: Altered light touch - To the right leg both medial lateral top of the foot. - Psychological Associated symptoms: Normal affect, Normal mood - Skin Skin Temperature: Warm Skin Moisture: Dry Skin Color: Normal <EDMAR CASSIDY - Last Filed: 01/24/19 22:11> - Vital signs Vitals: Temp Pulse Resp BP Pulse Ox 98.1 F 86 14 138/97 H 98 01/24/19 15:46 01/24/19 15:46 01/24/19 15:46 01/24/19 15:46 01/24/19 15:46 Course - Laboratory Result Diagrams: 01/24/19 16:28 01/24/19 16:28 <EDMAR CASSIDY - Last Filed: 01/24/19 22:11> - Laboratory Result Diagrams: 01/24/19 16:28 01/24/19 16:28 <TATA JAMES - Last Filed: 01/24/19 22:47> - Re-evaluation Re-evalutation: 01/24/19 21:20 Slightly elevated WBC count but has been on steroids. No fever today. Other labs unremarkable. I will reimage the lumbar spine as patient is presenting with symptoms concerning for cauda equina. Unlikely this is going to be that however we will need to check to be safe. 01/24/19 22:11 MRI results pending at time of signout at [address] Vipin James has been given report. At this time he will follow-up on the official MRI results. I think that if her MRI is unremarkable and she can go home. Laboratory 01/24/19 01/24/19 01/24/19 16:28 16:28 16:28 WBC 13.9 H RBC 4.83 Hgb 14.5 Hct 43.2 MCV 89 MCH 30.1 MCHC 33.7 RDW 14.0 Plt Count 274 Seg Neutrophils % 56.7 Lymphocytes % 33.8 Monocytes % 7.9 Eosinophils % 0.7 Basophils % 0.9 Absolute Neutrophils 7.9 Absolute Lymphocytes 4.7 Absolute Monocytes 1.1 Absolute Eosinophils 0.1 Absolute Basophils 0.1 Sodium 136.5 L Potassium 4.4 Chloride 101 Carbon Dioxide 28 Anion Gap 8 BUN 18 Creatinine 0.81 Est GFR ( Amer) > 60 Est GFR (Non-Af Amer) > 60 Glucose 87 Calcium 10.0 Total Bilirubin 0.5 Direct Bilirubin 0.2 Neonat Total Bilirubin Not Reportable Neonat Direct Bilirubin Not Reportable Neonat Indirect Bili Not Reportable AST 19 ALT 21 Alkaline Phosphatase 85 Total Protein 7.3 Albumin 4.1 Urine Color YELLOW Urine Appearance SLIGHTLY-CLOUDY Urine pH 6.0 Ur Specific [place] 1.016 Urine Protein NEGATIVE Urine Glucose (UA) NEGATIVE Urine Ketones NEGATIVE Urine Blood NEGATIVE Urine Nitrite NEGATIVE Urine Bilirubin NEGATIVE Urine Urobilinogen NEGATIVE Ur Leukocyte Esterase NEGATIVE Urine WBC (Auto) 1 Urine RBC (Auto) 1 Squamous Epi Cells Auto 2 Urine Mucus (Auto) RARE Urine Ascorbic Acid 20 H (EDMAR CASSIDY) - Vital Signs Vital signs: Temp Pulse Resp BP Pulse Ox 98.2 F 88 25 H 123/75 99 01/24/19 19:45 01/24/19 19:45 01/24/19 22:28 01/24/19 22:28 01/24/19 22:28 - Laboratory Laboratory results interpreted by me: 01/24/19 01/24/19 01/24/19 16:28 16:28 16:28 WBC 13.9 H Sodium 136.5 L Urine Ascorbic Acid 20 H Discharge <EDMAR CASSIDY - Last Filed: 01/24/19 22:11> <TATA JAMES - Last Filed: 01/24/19 22:47> - Discharge Clinical Impression: Back pain Qualifiers: Back pain location: low back pain Chronicity: chronic Back pain laterality: unspecified Sciatica presence: without sciatica Qualified Code(s): M54.5 - Low back pain; G89.29 - Other chronic pain Condition: Stable Disposition: HOME, SELF-CARE Instructions: Chronic Back Pain ([facility]) Additional Instructions: Please follow-up with your primary care physician, you are given referral to orthopedic surgery, your MRI today, did not show any changes from prior, there is no evidence of compression of your spinal cord or on the nerves coming out of your spine that would explain your symptoms. Referrals: CONSTANTINE ARMANDO MD [ACTIVE STAFF] - Follow up in 3-5 days (orthopedic surgery )
[2019-01-24] MEDS ORDERED: HYDROCODONE/ACETAMINOPHEN 5-325 MG TABLET PO PRN (21:21)
[2019-01-24] MEDS ORDERED: KETOROLAC TROMETHAMINE INJ/PF 30 MG/1 ML SDV IV ONE (21:22)
[2019-01-24 22:33] VITALS: BP 123/75
--- NOTE | 2019-01-24 22:35 | RADIOLOGY REPORT (SQ) ---
EXAM DESCRIPTION: MR LUMBAR SPINE WITHOUT IV CONTRAST COMPLETED DATE/TME: 01/24/2019 19:33 CLINICAL HISTORY: 33 years, Female, numbness to bilateral legs, bowel loss COMPARISON: Prior study from 01/14/2019 TECHNIQUE: Multiplanar, multisequence MR images of the lumbar spine were obtained without the use of intravenous contrast. Images stored on PACS. LIMITATIONS: None. 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 The conus medullaris is normal in signal and morphology, terminating at the L1 level. Anterior and posterior ligamentous structures are intact. Multilevel disc desiccation is noted. Modic type II degenerative endplate changes are noted at L4-L5 and L5-S1. There are no epidural fluid collections. No suspicious bone marrow edema is identified. Multilevel degenerative changes are evident about the lumbar spine, as follows: T11-L3 appear normal. At L3-L4, there is minimal disc bulge without significant foraminal or central canal stenosis. At L4-L5, there is mild disc height loss/disc bulge with superimposed central disc protrusion as well as mild bilateral facet hypertrophy. No resultant foraminal or central canal stenosis is noted. At L5-S1, there is mild disc height loss/disc bulge with superimposed right central to subarticular disc protrusion which contacts the descending right S1 nerve root within the lateral recess. No foraminal or central canal stenosis is noted. Overall, findings are unchanged from the previous examination dated 01/14/2019. IMPRESSION: Mild multilevel lumbar spondylosis, as above, not substantially changed from 01/14/2019. No evidence of significant neural foraminal or lumbar canal stenosis. copyright 2010 [employer]- All Rights Reserved
== END 2019-01-24 23:00 | disposition home or self-care (01) ==
LOC: ER 15:37
DX: M54.5 Low back pain (principal); G89.29 Other chronic pain; R20.0 Anesthesia of skin; F12.10 Cannabis abuse, uncomplicated; Z88.8 Allergy status to other drugs, medicaments and biological substances; Z88.1 Allergy status to other antibiotic agents; Z88.5 Allergy status to narcotic agent; Z91.018 Allergy to other foods; Z91.048 Other nonmedicinal substance allergy status
CPT/HCPCS: 99284; 96374; 36415; 85025; 80053; 81001; 72148; J1885

== ENCOUNTER → 2019-04-04 | Outpatient (CLI) | payer OTHER ==
--- NOTE | 2019-04-04 13:50 | RADIOLOGY REPORT (SQ) ---
EXAM DESCRIPTION: MRI HEAD WITHOUT COMPLETED DATE/TIME: 04/04/2019 1:30 pm REASON FOR STUDY: OCCIPITAL NEURALGIA (M54.81) M54.81 OCCIPITAL NEURALGIA COMPARISON: None. TECHNIQUE: Multiplanar imaging includes non-contrasted T1, T2, FLAIR, and diffusion with ADC map seq uences. Images stored on PACS. LIMITATIONS: None. FINDINGS: ANATOMY: No anomalies. Normal vascular flow voids. Pituitary fossa normal. CSF SPACES: Normal in size and contour. No hemorrhage. CEREBRUM: Sulci and gyri normal in size and contour. Normal white matter signal on FLAIR imaging. No evidence of hemorrhage, mass, or extraaxial fluid collection. POSTERIOR FOSSA: No signal alteration. No hemorrhage. No edema, masses or mass effect. Internal brandan tory canals, cerebello-pontine angles, mastoids normal. DIFFUSION IMAGING: Negative for acute or sub-acute infarction. ORBITS: No masses. Globes normal. PARANASAL SINUSES: No fluid levels. Mucosa normal. OTHER: No other significant finding. IMPRESSION: NORMAL MRI OF THE BRAIN WITHOUT INTRAVENOUS GADOLINIUM CONTRAST. EVIDENCE OF ACUTE STROKE: NO. TECHNICAL DOCUMENTATION: JOB ID: [id number] [employer]- All Rights Reserved Reading location - IP/workstation name: [email or web address]
== END ==
LOC: RAD 12:45
PROVIDERS: ATTEND Psychiatry & Neurology Neurology
DX: M54.81 Occipital neuralgia (principal)
CPT/HCPCS: 70551

== ENCOUNTER → 2019-04-12 | Outpatient (CLI) | payer OTHER ==
--- NOTE | 2019-04-12 17:31 | RADIOLOGY REPORT (SQ) ---
EXAM DESCRIPTION: MRI ORBIT/FACIAL/NECK WITHOUT COMPLETED DATE/TIME: 04/12/2019 4:50 pm REASON FOR STUDY: M54.81 OCCIPITAL NEURALGIA M54.81 OCCIPITAL NEURALGIA COMPARISON: MRI brain 04/04/2019, MRI thoracic spine 01/14/2019 MRI lumbar spine 01/14/2019 Cervical spine plain films 08/30/2018 TECHNIQUE: Multiplanar multisequence imaging of the soft tissues of the neck performed without contr ast. All images stored on PACS. LIMITATIONS: None. FINDINGS: SKULL BASE: Intact. MAJOR SALIVARY GLANDS: No solid or cystic masses. No inflammatory changes. LYMPHADENOPATHY: No adenopathy. MUCOSAL MASSES OR ASYMMETRY: No mucosal masses or asymmetry. LARYNX/CORDS: No abnormal findings. VASCULAR STRUCTURES: The major vessels are patent. LUNG APICES: Clear. BONES: Intact. DISC LEVELS: No significant central canal or foraminal stenosis. There is minimal posterior disc bu lging at C4-5 without significant central or foraminal encroachment. THYROID: Normal size. No masses. PARANASAL SINUSES: Clear. OTHER: No other significant finding. IMPRESSION: NO SIGNIFICANT FINDING IN THE SOFT TISSUES OF THE NECK. TECHNICAL DOCUMENTATION: JOB ID: [id number] [employer]- All Rights Reserved Reading location - IP/workstation name: [email or web address]
== END ==
LOC: RAD 15:57
PROVIDERS: ATTEND Psychiatry & Neurology Neurology
DX: M54.81 Occipital neuralgia (principal); J34.89 Other specified disorders of nose and nasal sinuses
CPT/HCPCS: 70540

== ENCOUNTER → 2019-04-18 | Outpatient (CLI) | payer OTHER ==
--- NOTE | 2019-04-18 16:34 | RADIOLOGY REPORT (SQ) ---
EXAM DESCRIPTION: CERV SP 6 OR MORE COMPLETED DATE/TIME: 04/18/2019 4:18 pm REASON FOR STUDY: NECK PAIN COMPARISON: 08/30/2018 NUMBER OF VIEWS: Seven views. TECHNIQUE: AP, lateral, obliques, flexion, extension, and odontoid radiographic images acquired of t he cervical spine. LIMITATIONS: None. FINDINGS: MINERALIZATION: Normal. ALIGNMENT: Anatomic. FLEXION/EXTENSION: No instability. VERTEBRAE: Vertebral bodies of normal height. DISCS: No significant osteophytes or sclerosis. Disc height maintained. FORAMINA: No osteophytes or foraminal narrowing. LATERAL AND POSTERIOR ELEMENTS: Facets, lateral masses, and spinous processes without significant fin dings. HARDWARE: None in the spine. SOFT TISSUES: No masses or calcifications. Lung apices clear. OTHER: No other significant finding. IMPRESSION: NO SIGNIFICANT FINDING ON 7 VIEW SPINE SERIES. NO INSTABILITY ON FLEXION/EXTENSION. TECHNICAL DOCUMENTATION: JOB ID: [id number] [place]-[id number] 2010 [employer]- All Rights Reserved Reading location - IP/workstation name: [email or web address]
== END ==
LOC: RAD 15:55
PROVIDERS: ATTEND Neurological Surgery
DX: M54.2 Cervicalgia (principal)
CPT/HCPCS: 72052

== ENCOUNTER 2019-06-28 18:22 | Emergency (ER) | payer MEDICAID, OTHER ==
[2019-06-28] MEDS ORDERED: ASPIRIN 81 MG TABLET, CHEWABLE PO ONE (18:34)
--- NOTE | 2019-06-28 18:41 | ER Document Report ---
ED Medical Screen (RME) - General Chief Complaint: Chest Pain Stated Complaint: CHEST PAIN Time Seen by Provider: 06/28/19 18:31 Primary Care Provider: MANUEL OTERO MD [NO LOCAL MD] - Follow up as needed Mode of Arrival: Wheelchair Information source: Patient, Relative Notes: This 33-year-old female presents to the emergency department with history of migraine hemiplegic headaches, Patito-Danlos syndrome, chronic back pains IBS with complaints of chest pain for the past week and a half. No history of cardiac disease. Reports the chest pain is getting worse points to the middle of her chest. Patient's eyes flutter when the light is on, reports it irritates her. I have greeted and performed a rapid initial assessment of this patient. A comprehensive ED assessment and evaluation of the patient, analysis of test results and completion of the medical decision making process will be conducted by additional ED providers. Dictation of this chart was performed using voice recognition software; therefore, there may be some unintended grammatical errors. TRAVEL OUTSIDE OF THE [place] IN LAST 30 DAYS: No - Related Data Allergies/Adverse Reactions: diphenhydramine [From Benadryl] Allergy (Verified 06/28/19 18:32) doxycycline Allergy (Verified 06/28/19 18:32) morphine Allergy (Verified 06/28/19 18:32) екатерина Allergy (Uncoded 06/28/19 18:32) raspberries Allergy (Uncoded 06/28/19 18:32) Past Medical History Neurological Medical History: Reports: Hx Migraine - hemiplegia Renal/ Medical History: Denies: Hx Peritoneal Dialysis Musculoskeltal Medical History: Reports Hx Musculoskeletal Trauma Traumatic Medical History: Reports: Hx Fractures Past Surgical History: Reports: Hx Breast Surgery - tumor removed, Hx Cholecystectomy, Hx Orthopedic Surgery - R femur - Immunizations Immunizations up to date: Yes Hx Diphtheria, Pertussis, Tetanus Vaccination: Yes Physical Exam - Vital signs Vitals: Temp Pulse Resp BP Pulse Ox 99.3 F 70 16 108/65 96 06/28/19 18:39 06/28/19 18:39 06/28/19 18:39 06/28/19 18:39 06/28/19 18:39 Course - Vital Signs Vital signs: Temp Pulse Resp BP Pulse Ox 97.7 F 80 20 134/83 H 98 06/28/19 21:03 06/28/19 21:03 06/28/19 21:03 06/28/19 21:03 06/28/19 21:03 - Laboratory Result Diagrams: 06/28/19 19:25 06/28/19 19:25 Doctor's Discharge - Discharge Clinical Impression: Chest pain, Headache Condition: Good Disposition: HOME, SELF-CARE Instructions: Chest Pain of Unclear Cause ([facility]), Headache ([facility]) Referrals: MANUEL OTERO MD [NO LOCAL MD] - Follow up as needed
--- NOTE | 2019-06-28 19:08 | RADIOLOGY REPORT (SQ) ---
EXAM DESCRIPTION: CHEST 2 VIEWS COMPLETED DATE/TIME: 06/28/2019 6:50 pm REASON FOR STUDY: cp COMPARISON: None. EXAM PARAMETERS: NUMBER OF VIEWS: two views TECHNIQUE: Digital Frontal and Lateral radiographic views of the chest acquired. RADIATION DOSE: NA LIMITATIONS: none FINDINGS: LUNGS AND PLEURA: No opacities, masses or pneumothorax. No pleural effusion. MEDIASTINUM AND HILAR STRUCTURES: No masses or contour abnormalities. HEART AND VASCULAR STRUCTURES: Heart normal size. No evidence for failure. BONES: No acute findings. HARDWARE: None in the chest. OTHER: No other significant finding. IMPRESSION: NO ACUTE RADIOGRAPHIC FINDING IN THE CHEST. TECHNICAL DOCUMENTATION: JOB ID: [id number] [employer]- All Rights Reserved Reading location - IP/workstation name: [email or web address]
[2019-06-28] MEDS ORDERED: PROCHLORPERAZINE EDISYLATE INJ 10 MG/2 ML VIAL IV ONE (19:29)
[2019-06-28] MEDS ORDERED: RINGERS SOLUTION,LACTATED 1,000 ML IV ONE (19:29)
--- NOTE | 2019-06-28 19:35 | ER Document Report ---
ED General - General Chief Complaint: Chest Pain Stated Complaint: CHEST PAIN Time Seen by Provider: 06/28/19 18:31 Primary Care Provider: MANUEL OTERO MD [NO LOCAL MD] - Follow up as needed Mode of Arrival: Wheelchair TRAVEL OUTSIDE OF THE [place] IN LAST 30 DAYS: No - HPI Notes: 33-year-old female with a history of hemiplegic migraines, Patito-Danlos, IBS, chronic pain now presents with headache, chest pain. Patient describes substernal chest pain gradual onset over last week and a half, constant. No fever, chills or sweats. She has some headache, bifrontal, pressure behind her eyes, somewhat similar but somewhat different than her migraines. Some mild photophobia. No true neck stiffness, moderate intensity, nonradiating. Gradual onset. No family history of early ACS. No use of cocaine. No worse with movement. No lower 70 pain or swelling. No personal or family history of venous thrombi embolism. No other modifying factors, no other associated symptoms, no other provocative or palliative factors. - Related Data Allergies/Adverse Reactions: diphenhydramine [From Benadryl] Allergy (Verified 06/28/19 18:32) doxycycline Allergy (Verified 06/28/19 18:32) morphine Allergy (Verified 06/28/19 18:32) екатерина Allergy (Uncoded 06/28/19 18:32) raspberries Allergy (Uncoded 06/28/19 18:32) Past Medical History - General Information source: Patient, Relative - Social History Smoking Status: Never Smoker Chew tobacco use (# tins/day): No Frequency of alcohol use: None Drug Abuse: None Family History: Reviewed & Not Pertinent Patient has suicidal ideation: No Patient has homicidal ideation: No - Medical History Notes: Includes a history of Patito-Danlos, IBS, hemiplegic migraines Neurological Medical History: Reports: Hx Migraine - hemiplegia Renal/ Medical History: Denies: Hx Peritoneal Dialysis Musculoskeletal Medical History: Reports Hx Musculoskeletal Trauma Traumatic Medical History: Reports: Hx Fractures Past Surgical History: Reports: Hx Breast Surgery - tumor removed, Hx Cholecystectomy, Hx Orthopedic Surgery - R femur - Immunizations Immunizations up to date: Yes Hx Diphtheria, Pertussis, Tetanus Vaccination: Yes Review of Systems - Review of Systems Notes: Review of systems as in the history of present illness, otherwise negative x 10 systems. Physical Exam - Vital signs Vitals: Temp Pulse Resp BP Pulse Ox 99.3 F 70 16 108/65 96 06/28/19 18:39 06/28/19 18:39 06/28/19 18:39 06/28/19 18:39 06/28/19 18:39 - Notes Notes: General: Well developed, well nourished. HEENT: Normocephalic, atraumatic. PEERL. No conjunctival injection. Neck: Supple, no significant adenopathy. No meningismus. Chest: Clear bilaterally, good air entry. Abdomen: Soft, non-tender, nondistended. Back: Non-tender. Normal ROM Extremities: No cyanosis, clubbing or edema. Vascular: Symmetric peripheral pulses, normal capillary refill. Skin: No significant rash. No petechiae or purpura. Motor: Normal tone and power. Symmetric. Neurologic: Alert and oriented to person place and time. Cranial nerves II-12 are intact. Sensation intact and symmetric in the upper and lower extremities. No cerebellar findings including finger-nose testing. No clonus. Gait normal. Funduscopic exam shows crisp disc margins, no evidence of papilledema. Course - Re-evaluation Re-evalutation: 06/28/19 19:34 Well-appearing female the after mentioned symptoms. With regard to her chest pain, she is low risk for ACS, she is PERC negative, would not pursue rule out a pulmonary embolism. May be underlying bronchitis, chest pain, costochondritis or other etiology. Will obtain chest x-ray, labs, additional studies ordered by pit physician. With regard to her headache, she is benign normal neurologic exam, no fever, no high risk features, no meningismus. Will treat with Compazine and reassess. 06/28/19 20:53 Labs reviewed. CBC normal, chemistry unremarkable. Troponin normal. Chest x-ray unremarkable. Patient had marked improvement and feels back to her baseline. Her is actually brought to [facility] and for them to share, she is demanding discharge home. I cautioned her that I do not have a clear etiology for her symptoms, however she understands the risk including permanent disability or . She is cautioned to follow close with her primary care physician, return immediately if worsening. - Vital Signs Vital signs: Temp Pulse Resp BP Pulse Ox 99.3 F 70 16 108/65 96 06/28/19 18:39 06/28/19 18:39 06/28/19 18:39 06/28/19 18:39 06/28/19 18:39 - Laboratory Result Diagrams: 06/28/19 19:25 06/28/19 19:25 - EKG Interpretation by Or EKG shows normal: Sinus rhythm Rate: Normal [place]/QRS: No: Right axis deviation Heart block present: No: CHB (3rd degree block) Additional EKG results interpreted by me: 06/28/19 20:53 No acute ischemic changes Discharge - Discharge Clinical Impression: Chest pain Qualifiers: Chest pain type: other chest pain Qualified Code(s): R07.89 - Other chest pain; R07.8 - Other chest pain Headache Qualifiers: Headache type: other headache syndrome Qualified Code(s): G44.89 - Other headache syndrome Condition: Good Disposition: HOME, SELF-CARE Instructions: Chest Pain of Unclear Cause ([facility]), Headache ([facility]) Referrals: MANUEL OTERO MD [NO LOCAL MD] - Follow up as needed
[2019-06-28 19:36] LABS: ABSOLUTE EOSINOPHILS # (AUTO) 0.1 10^3/uL (0.0-0.6); ABSOLUTE LYMPHOCYTES (AUTO) 2.8 10^3/uL (0.5-4.7); ABSOLUTE MONOCYTES (AUTO) 0.7 10^3/uL (0.1-1.4); ABSOLUTE NEUT (AUTO) 4.3 10^3/uL (1.7-8.2); BASOPHILS % (AUTO) 0.4 % (0-2); EOSINOPHILS % (AUTO) 1.5 % (0-6); HEMATOCRIT 40.2 % (36.0-47.0); HEMOGLOBIN 13.8 g/dL (12.0-15.5); LYMPHOCYTES % (AUTO) 35.1 % (13-45); MEAN CORPUSCULAR HGB CONC 34.2 g/dL (32.0-36.0); MEAN CORPUSCULAR VOLUME 88 fl (80-97); MONOCYTES % (AUTO) 9.1 % (3-13); PLATELET COUNT 221 10^3/uL (150-450); RED BLOOD COUNT 4.59 10^6/uL (3.72-5.28); RED CELL DISTRIBUTION WIDTH 13.3 % (11.5-14.0); SEGMENTED NEUTROPHILS % (AUTO) 53.9 % (42-78); TOTAL CELLS COUNTED % (AUTO) 100 %; WHITE BLOOD COUNT 7.9 10^3/uL (4.0-10.5)
[2019-06-28 19:57] LABS: ALBUMIN 4.1 g/dL (3.5-5.0); ALKALINE PHOSPHATASE 72 U/L (38-126); ANION GAP 8 (5-19); ASPARTATE AMINO TRANSFERASE 25 U/L (14-36); BILIRUBIN,DIRECT 0.1 mg/dL (0.0-0.4); BILIRUBIN,TOTAL 0.3 mg/dL (0.2-1.3); BLOOD UREA NITROGEN 12 mg/dL (7-20); CALCIUM 10.2 mg/dL (8.4-10.2); CARBON DIOXIDE 27 mmol/L (22-30); CHLORIDE 102 mmol/L (98-107); CREATINE KINASE 52 U/L (30-135); GLUCOSE 88 mg/dL (75-110); POTASSIUM 4.5 mmol/L (3.6-5.0); TOTAL PROTEIN 6.8 g/dL (6.3-8.2)
[2019-06-28 20:09] LABS: CREATINE KINASE MB < 0.22 ng/mL (<4.55); TROPONIN I < 0.012 ng/mL
[2019-06-28 21:04] VITALS: BP 134/83
--- NOTE | 2019-06-29 10:58 | EKG REPORT ---
SEVERITY:- BORDERLINE ECG - SINUS RHYTHM BORDERLINE LEFT AXIS DEVIATION BORDERLINE T ABNORMALITIES, DIFFUSE LEADS : Confirmed by: Rachid Contreras 29-Jun-2019 10:58:12
== END 2019-06-28 21:17 | disposition home or self-care (01) ==
LOC: ER 18:22
DX: G44.89 Other headache syndrome (principal); R07.2 Precordial pain; H53.149 Visual discomfort, unspecified; Z91.048 Other nonmedicinal substance allergy status; Z88.8 Allergy status to other drugs, medicaments and biological substances; Z88.1 Allergy status to other antibiotic agents; Z88.5 Allergy status to narcotic agent; Z91.018 Allergy to other foods
CPT/HCPCS: 93005; 36415; 82553; 82550; 85025; 81025; 80053; 84484; 71046; 93010; J0780; J7120

== ENCOUNTER 2019-07-14 18:39 | Emergency (ER) | payer MEDICAID, OTHER ==
[2019-07-14 19:52] LABS: ABSOLUTE BASOPHILS # (AUTO) 0.1 10^3/uL (0.0-0.2); ABSOLUTE EOSINOPHILS # (AUTO) 0.1 10^3/uL (0.0-0.6); ABSOLUTE LYMPHOCYTES (AUTO) 3.1 10^3/uL (0.5-4.7); ABSOLUTE MONOCYTES (AUTO) 0.9 10^3/uL (0.1-1.4); ABSOLUTE NEUT (AUTO) 7.7 10^3/uL (1.7-8.2); BASOPHILS % (AUTO) 0.5 % (0-2); EOSINOPHILS % (AUTO) 0.6 % (0-6); HEMATOCRIT 39.6 % (36.0-47.0); HEMOGLOBIN 13.1 g/dL (12.0-15.5); MEAN CORPUSCULAR HEMOGLOBIN 29.3 pg (27.0-33.4); MEAN CORPUSCULAR HGB CONC 33.1 g/dL (32.0-36.0); MEAN CORPUSCULAR VOLUME 89 fl (80-97); MONOCYTES % (AUTO) 7.6 % (3-13); PLATELET COUNT 225 10^3/uL (150-450); RED BLOOD COUNT 4.47 10^6/uL (3.72-5.28); SEGMENTED NEUTROPHILS % (AUTO) 65.3 % (42-78); TOTAL CELLS COUNTED % (AUTO) 100 %; WHITE BLOOD COUNT 11.8 10^3/uL (4.0-10.5)
[2019-07-14 20:07] LABS: ALKALINE PHOSPHATASE 72 U/L (38-126); ANION GAP 6 (5-19); ASPARTATE AMINO TRANSFERASE 20 U/L (14-36); BILIRUBIN,TOTAL 0.3 mg/dL (0.2-1.3); BLOOD UREA NITROGEN 18 mg/dL (7-20); CALCIUM 9.6 mg/dL (8.4-10.2); CARBON DIOXIDE 26 mmol/L (22-30); CHLORIDE 105 mmol/L (98-107); GLUCOSE 95 mg/dL (75-110); POTASSIUM 4.1 mmol/L (3.6-5.0)
--- NOTE | 2019-07-14 21:08 | ER Document Report ---
ED General - General Chief Complaint: Headache >24 hrs old Stated Complaint: HEAD PAIN Time Seen by Provider: 07/14/19 20:54 Notes: Patient is a 33-year-old female that comes emergency department for chief complaint of fall, head injury, neck pain. Patient reportedly has a history of Patito-Danlos, frequent migraines, and seizures in the migraines where she can still reportedly hear what is going on but cannot respond. She states that the seizures are triggered by light. She is not on antiepileptic medication but she is reportedly on propanolol for tachycardia and she is out of the propanolol. She states that her friend's mother called EMS after she fell. No other pain reported of the neck pain and head injury at this time. Denies alcohol or recreational drugs. TRAVEL OUTSIDE OF THE [place] IN LAST 30 DAYS: No - Related Data Allergies/Adverse Reactions: diphenhydramine [From Benadryl] Allergy (Verified 06/28/19 18:32) doxycycline Allergy (Verified 06/28/19 18:32) morphine Allergy (Verified 06/28/19 18:32) екатерина Allergy (Uncoded 06/28/19 18:32) raspberries Allergy (Uncoded 06/28/19 18:32) Past Medical History - General Information source: Patient - Social History Smoking Status: Never Smoker Chew tobacco use (# tins/day): No Frequency of alcohol use: None Drug Abuse: None Family History: Reviewed & Not Pertinent Patient has suicidal ideation: No Patient has homicidal ideation: No - Past Medical History Cardiac Medical History: Reports: Hx Hypercholesterolemia Neurological Medical History: Reports: Hx Migraine - hemiplegia. with seizures Renal/ Medical History: Denies: Hx Peritoneal Dialysis Musculoskeletal Medical History: Reports Hx Musculoskeletal Trauma Traumatic Medical History: Reports: Hx Fractures Past Surgical History: Reports: Hx Breast Surgery - tumor removed, Hx Cholecystectomy, Hx Orthopedic Surgery - R femur - Immunizations Immunizations up to date: Yes Hx Diphtheria, Pertussis, Tetanus Vaccination: Yes Review of Systems - Review of Systems Constitutional: No symptoms reported EENT: No symptoms reported Cardiovascular: No symptoms reported Respiratory: No symptoms reported Gastrointestinal: No symptoms reported Genitourinary: No symptoms reported Female Genitourinary: No symptoms reported Musculoskeletal: See HPI Skin: No symptoms reported Hematologic/Lymphatic: No symptoms reported Neurological/Psychological: See HPI Physical Exam - Vital signs Vitals: BP 128/90 H 10/10/19 19:00 - Notes Notes: GENERAL: Alert, interacts well. No acute distress. Smiling and well-appearing. HEAD: Normocephalic, atraumatic. EYES: Pupils equal, round, and reactive to light. Extraocular movements intact. ENT: Oral mucosa moist, tongue midline. Oropharynx unremarkable. Airway patent. NECK: Full range of motion. Supple. Trachea midline. Some tenderness to paraspinal muscles bilaterally but otherwise unremarkable. LUNGS: Clear to auscultation bilaterally, no wheezes, rales, or rhonchi. No re spiratory distress. HEART: Regular rate and rhythm. No murmur ABDOMEN: Soft, non-tender. Non-distended. EXTREMITIES: Moves all 4 extremities spontaneously. No edema, normal radial and dorsalis pedis pulses bilaterally. No cyanosis. BACK: no cervical, thoracic, lumbar midline tenderness. No saddle anesthesia, normal distal neurovascular exam. Moves all extremities in full range of motion. NEUROLOGICAL: Alert and oriented x3. Normal speech. Cranial nerves II through XII grossly intact. PSYCH: Normal affect, normal mood. SKIN: Warm, dry, normal turgor. No rashes or lesions noted. Course - Re-evaluation Re-evalutation: 07/14/19 21:07 Patient difficult to get a history out of. If I turn the light on she starts jerking her head and fluttering her eyelids although she will occasionally look at me. She did become tachycardic slightly when I walked into the room but this calmed down afterwards. After she started fluttering her eyelids she refused or could not respond to me. 07/14/19 21:15 Patient started yelling, and went into the room, patient pointing at her collar then grabbing and tearing in her collar. I readjusted for her. I explained that she needed to have the collar in place until I cleared her C-spine via imaging. After I adjusted this and explained this to her she simply stared at me and refused to answer any additional questions and did not respond further. 07/14/19 After completion of labs I reevaluated patient, she is sitting up, smiling, talkative. She is much easier to evaluate now. Physical exam portion based on her second evaluation. She does report "vaguely" remembering someone coming in and taking off her glasses and speaking with her. She does not address the situation further. She is calm and cooperative now. CAT scan of the head and neck unremarkable although patient is complaining of pain over the paracervical muscles bilaterally. She moves her head and full range of motion. CBC, chemistry, magnesium, test reviewed and unremarkable. Unremarkable vital signs. Patient has a ride here already and is prepared to leave. I did discuss all details, I discussed follow-up and return precautions. Patient provided diazepam, she is taken this in the past for both seizure control and muscle relaxer but she has not prescribed this. Discussed precautions in r egards to this, patient and family state appreciation and agreement. Patient instructed to fill and take her propanolol as prescribed. - Vital Signs Vital signs: Temp Pulse Resp BP Pulse Ox 12 126/98 H 07/14/19 23:30 07/14/19 23:30 - Laboratory Result Diagrams: 07/14/19 19:40 07/14/19 19:40 Laboratory results interpreted by me: 07/14/19 07/14/19 07/14/19 19:40 19:40 21:30 WBC 11.8 H Sodium 136.7 L Urine Blood LARGE H Discharge - Discharge Clinical Impression: Neck pain, Has run out of medications Head injury Qualifiers: Encounter type: initial encounter Qualified Code(s): S09.90XA - Unspecified injury of head, initial encounter Condition: Stable Disposition: HOME, SELF-CARE Additional Instructions: The CAT scan of your head and neck do not show any concerning findings at this time. Your remaining evaluation is reassuring. Fill and take your propranolol, take the diazepam as prescribed as muscle relaxer. Follow close with your primary provider for additional management. Return for any concerning symptoms, see head injury precautions listed below Head Injury Precautions At this point, there is no evidence that your head injury is serious. Observation is necessary, however. Limit activity for the first 24 hours. During the first 24 hours, check to see approximately every two to three hours that the patient is easily arousable, responds normally, and can perform common tasks such as walking without difficulty. Contact your doctor or go to the hospital if any of the following things occur: Persistent vomiting, difficulty in arousing the patient, worsening or continued headache, or failure to improve as expected. Head injuries can cause symptoms that persist for a few days or even a few weeks. Prescriptions: Diazepam [Valium 5 mg Tablet] 5 mg PO TID PRN #12 tablet PRN Reason:
[2019-07-14 21:33] LABS: ALCOHOL < 10 mg/dL (NONE DETECTED)
[2019-07-14 21:52] LABS: APPEARANCE,URINE SLIGHTLY-CLOUDY; BILIRUBIN,URINE NEGATIVE (NEGATIVE); COLOR,URINE YELLOW; GLUCOSE, URINE NEGATIVE (NEGATIVE); KETONES,URINE NEGATIVE (NEGATIVE); LEUKOCYTE ESTERASE,URINE NEGATIVE (NEGATIVE); NITRITE,URINE NEGATIVE (NEGATIVE); PROTEIN,URINE NEGATIVE (NEGATIVE); URINE SPECIFIC GRAVITY 1.021; UROBILINOGEN,URINE NEGATIVE mg/dL (<2.0)
--- NOTE | 2019-07-14 22:18 | RADIOLOGY REPORT (SQ) ---
EXAM DESCRIPTION: CT cervical spine without contrast CLINICAL HISTORY: 33 years Female, fall, head injury, neck pain COMPARISON: None. TECHNIQUE: Axial images of the cervical spine were performed, without the use of intravenous contrast, with sagittal and coronal reformatted images This exam was performed according to our departmental dose-optimization program which includes use of Automated Exposure Control, adjustment of the mA and/or kV according to patient size and/or use of iterative reconstruction technique. FINDINGS: No fracture or dislocation. No evidence of prevertebral swelling. There are no significant degenerative changes. IMPRESSION: No fracture or dislocation.
--- NOTE | 2019-07-14 22:25 | RADIOLOGY REPORT (SQ) ---
CT HEAD WITHOUT IV CONTRAST EXAM DATE: 07/14/2019 9:04 PM CDT HISTORY: fall, head injury, possible seizures. HX OF Patito-Danlos syndrome. COMPARISON: None. TECHNIQUE: CT scan of the brain without IV contrast. This exam was performed according to our departmental dose-optimization program, which includes automated exposure control, adjustment of the mA and/or kV according to patient size and/or use of iterative reconstruction technique. FINDINGS: The ventricles, cisterns, and sulci are age-appropriate. No evidence of acute infarction, intracranial hemorrhage, extra-axial fluid collection, or midline shift. No air-fluid levels are seen in the paranasal sinuses to suggest acute sinusitis. No depressed skull fracture. IMPRESSION: No acute intracranial findings.
[2019-07-14] MEDS ORDERED: PROPRANOLOL HCL 20 MG TABLET PO ONE (23:18)
[2019-07-14] MEDS ORDERED: DIAZEPAM 5 MG TABLET PO ONE (23:19)
[2019-07-14 23:51] VITALS: BP 126/98
== END 2019-07-14 23:51 | disposition home or self-care (01) ==
LOC: ER 18:39
DX: S09.90XA Unspecified injury of head, initial encounter (principal); M54.2 Cervicalgia; R51 Headache; W19.XXXA Unspecified fall, initial encounter; Q79.60 Ehlers-Danlos syndrome, unspecified; Z79.899 Other long term (current) drug therapy
CPT/HCPCS: 99284; 36415; 80307; 83735; 84703; 85025; 80053; 81001; 70450; 72125; L0120; J3490

== ENCOUNTER 2020-03-11 16:03 | Emergency (ER) | payer MEDICAID, OTHER ==
[2020-03-11 16:09] VITALS: BP 128/90
--- NOTE | 2020-03-11 16:26 | ER Document Report ---
HPI - HPI Patient complains to provider of: Back pain Time Seen by Provider: 03/11/20 16:21 Onset/Duration: Sudden Pain Level: 3 Context: This 34-year-old female presented to urgency room today stating she had pain and spasm to her back. Associated Symptoms: None Exacerbated by: Denies Relieved by: Denies - REPRODUCTIVE Reproductive: DENIES: : Past Medical History - General Information source: Patient - Social History Smoking Status: Never Smoker Cigarette use (# per day): Yes - 20 Chew tobacco use (# tins/day): No Smoking Education Provided: No Frequency of alcohol use: None Drug Abuse: Marijuana Family History: Reviewed & Not Pertinent Patient has homicidal ideation: No - Past Medical History Cardiac Medical History: Reports: Hx Hypercholesterolemia Neurological Medical History: Reports: Hx Migraine - hemiplegia. with seizures Renal/ Medical History: Denies: Hx Peritoneal Dialysis Musculoskeletal Medical History: Reports Hx Musculoskeletal Trauma Traumatic Medical History: Reports: Hx Fractures Past Surgical History: Reports: Hx Breast Surgery - tumor removed, Hx Cholecystectomy, Hx Orthopedic Surgery - R femur - Immunizations Immunizations up to date: Yes Hx Diphtheria, Pertussis, Tetanus Vaccination: Yes Vertical Provider Document - CONSTITUTIONAL Agree With Documented VS: Yes - INFECTION CONTROL TRAVEL OUTSIDE OF THE [place] IN LAST 30 DAYS: No - HEENT HEENT: Atraumatic, Conjuctival Injection, Normocephalic, PERRLA - NECK Neck: Normal Inspection, Supple - RESPIRATORY Respiratory: Breath Sounds Normal, No Respiratory Distress - CARDIOVASCULAR Cardiovascular: Regular Rate, Regular Rhythm - GI/ABDOMEN Gastrointestinal: Abdomen Soft, Abdomen Non-Tender - REPRODUCTIVE Female Genitalia: Normal Inspection - BACK Back: Normal Inspection - No midline tenderness no crepitus no step-off she does have palpable spasm to the right lateral aspect of her spine. - MUSCULOSKELETAL/EXTREMETIES Musculoskeletal/Extremeties: MAEW - NEURO Level of Consciousness: Awake, Alert, Appropriate - DERM Integumentary: Warm, Dry Course - Re-evaluation Re-evalutation: 03/11/20 16:23 No numbness no tingling no loss of bowel flow function no saddle anesthesia ambulatory with a rhythmic and steady gait. 03/11/20 16:23 Patient I discussed the fact that she should stop her of her Flexeril she will initiate with the pain medication provided here by us. - Vital Signs Vital signs: Temp Pulse Resp BP Pulse Ox 98.4 F 92 18 128/90 H 95 03/11/20 16:15 03/11/20 16:08 03/11/20 16:08 03/11/20 16:08 03/11/20 16:08 Discharge - Discharge Clinical Impression: Back spasm Disposition: HOME, SELF-CARE Instructions: Muscle Strain ([facility]), Warm Packs ([facility]) Additional Instructions: Follow-up with pain management as prescribed. Must follow-up with orthopedist. Increase fluid intake rest. Medications prescribed. Return to emergency room for any change worsening condition. Prescriptions: Prednisone [Deltasone 20 mg Tablet] 3 tab PO DAILY 5 Days tablet Methocarbamol [Robaxin 750 mg Tablet] 750 mg PO ASDIR PRN #40 tablet PRN Reason:
== END 2020-03-11 16:28 | disposition home or self-care (01) ==
LOC: ER 16:03
DX: R25.2 Cramp and spasm (principal); M54.9 Dorsalgia, unspecified; Z72.0 Tobacco use
CPT/HCPCS: 99283